=== PATIENT | male | born 1970 | race Caucasian/White ===

== ENCOUNTER 2021-10-18 21:44 | Emergency (ER) | payer OTHER ==
[2021-10-18] MEDS ORDERED: KAPSPARGO SPRIN25 MG PO (22:00)
[2021-10-18] MEDS ORDERED: NORVASC2.5 MG PO (22:00)
[2021-10-18 22:20] LABS: BASO % 0.3 % (0.0-1.0); EOS # 0.3 10*3/uL (0.0-0.4); EOS % 2.8 % (1.0-4.0); HEMATOCRIT 42.6 % (42.0-52.0); LYMPH % 17.9 % (27.0-41.0); MEAN CELL VOLUME 86.4 fl (80.0-94.0); MEAN CORPUSCULAR HGB 29.6 pg (27.0-31.0); MEAN CORPUSCULAR HGB CONC 34.3 g/dl (33.0-37.0); MEAN PLATELET VOLUME 10.5 fl (9.6-12.3); MONO # 1.2 10*3/uL (0.1-1.0); MONO % 10.5 % (3.0-9.0); NEUT # 7.6 10*3/uL (2.3-7.9); PLATELET COUNT AUTOMATED 235 10*3/uL (130-400); RED BLOOD COUNT 4.93 10*6/uL (4.50-5.90); RED CELL DISTRI WIDTH 13.2 % (0-14.5); WHITE BLOOD COUNT 11.1 10*3/uL (4.8-10.8)
[2021-10-18 22:33] LABS: ACT PARTIAL THROMBO TIME 27.3 SECONDS (20.0-32.1)
[2021-10-18 22:35] LABS: ALKALINE PHOSPHATASE 85 U/L (45-117); BUN 15 mg/dl (7-24); CHLORIDE 107 mmol/L (98-107); CREATININE 0.91 mg/dL (0.70-1.30); POTASSIUM 3.3 mmol/L (3.5-5.1); SGOT/AST 15 IU/L (3-35); SGPT/ALT 31 U/L (12-78); SODIUM 139 mmol/L (136-145); TOTAL PROTEIN 6.8 gm/dL (6.4-8.2)
== END 2021-10-19 01:07 | disposition home or self-care (01) ==
LOC: ED 21:44
PROVIDERS: Internal Medicine
DX: R07.89 Other chest pain (principal); R11.0 Nausea; E87.6 Hypokalemia; Z79.899 Other long term (current) drug therapy

== ENCOUNTER 2022-08-11 21:19 | Emergency (ER) | payer OTHER ==
[~2022-08-11] VITALS: Ht 175.2 cm; Wt 74.4 kg
[~2022-08-11 21:19] MED LIST: KAPSPARGO SPRIN25 MG PO; NORVASC2.5 MG PO
[2022-08-12] MEDS ORDERED: Meclizine25 MG PO (00:37)
== END 2022-08-12 00:41 | disposition home or self-care (01) ==
LOC: ED 21:19
DX: H81.10 Benign paroxysmal vertigo, unspecified ear (principal); I10 Essential (primary) hypertension; Z79.899 Other long term (current) drug therapy